=== PATIENT | female | born 1965 ===

== ENCOUNTER 2018-08-05 09:53 | Outpatient (CLI) | payer OTHER | END 2018-08-05 10:05 | disposition home or self-care (01) | LOC: MAMO-SONO 09:53 | DX: N60.11 Diffuse cystic mastopathy of right breast (principal); Z80.3 Family history of malignant neoplasm of breast ==

== ENCOUNTER 2019-08-31 13:15 | Outpatient (CLI) | payer OTHER | END 2019-08-31 13:22 | disposition home or self-care (01) | LOC: MAMO-SONO 13:15 | DX: E04.1 Nontoxic single thyroid nodule (principal); Z80.3 Family history of malignant neoplasm of breast; N60.19 Diffuse cystic mastopathy of unspecified breast ==

== ENCOUNTER 2019-09-09 09:58 | Outpatient (CLI) | payer OTHER | END 2019-09-09 10:07 | disposition home or self-care (01) | LOC: SONOGRAMA 09:58 → MAMO-SONO 10:15 | DX: R16.0 Hepatomegaly, not elsewhere classified (principal) ==

== ENCOUNTER 2021-03-11 11:07 | Outpatient (CLI) | payer OTHER | END 2021-03-11 11:08 | disposition home or self-care (01) | LOC: MAMO-SONO 11:07 | PROVIDERS: ATTEND Specialist | DX: R92.0 Mammographic microcalcification found on diagnostic imaging of breast (principal); N60.11 Diffuse cystic mastopathy of right breast; N60.12 Diffuse cystic mastopathy of left breast; Z12.31 Encounter for screening mammogram for malignant neoplasm of breast; Z87.898 Personal history of other specified conditions; N64.59 Other signs and symptoms in breast ==

== ENCOUNTER 2022-03-20 14:17 | Outpatient (CLI) | payer OTHER | END 2022-03-20 14:37 | disposition home or self-care (01) | LOC: RAD 14:17 | PROVIDERS: ATTEND Internal Medicine Rheumatology | DX: M15.8 Other polyosteoarthritis (principal) ==

== ENCOUNTER 2022-07-06 13:42 | Emergency (ER) | payer OTHER ==
[~2022-07-06] VITALS: Ht 154.9 cm; Wt 51.7 kg
== END 2022-07-06 17:05 | disposition home or self-care (01) ==
LOC: ER 13:42
DX: S59.912A Unspecified injury of left forearm, initial encounter (principal); V19.9XXA Pedal cyclist (driver) (passenger) injured in unspecified traffic accident, initial encounter; Y93.B9 Activity, other involving muscle strengthening exercises; Y92.410 Unspecified street and highway as the place of occurrence of the external cause

== ENCOUNTER 2022-08-26 12:44 | Outpatient (CLI) | payer OTHER | END 2022-08-26 13:01 | disposition home or self-care (01) | LOC: MAMO-SONO 12:44 | PROVIDERS: ATTEND Specialist | DX: N60.11 Diffuse cystic mastopathy of right breast (principal); N60.12 Diffuse cystic mastopathy of left breast; E04.2 Nontoxic multinodular goiter; R22.1 Localized swelling, mass and lump, neck ==

== ENCOUNTER 2023-08-27 13:18 | Outpatient (CLI) | payer OTHER | END 2023-08-27 13:34 | disposition home or self-care (01) | LOC: MAMO-SONO 13:18 | PROVIDERS: ATTEND Specialist | DX: N60.12 Diffuse cystic mastopathy of left breast (principal); E04.2 Nontoxic multinodular goiter ==

== ENCOUNTER 2024-09-01 12:58 | Outpatient (CLI) | payer OTHER | END 2024-09-01 13:02 | disposition home or self-care (01) | LOC: NUCLEAR 12:58 | PROVIDERS: ATTEND Internal Medicine | DX: M81.0 Age-related osteoporosis without current pathological fracture (principal) ==

== ENCOUNTER 2024-09-01 13:33 | Outpatient (CLI) | payer OTHER | END 2024-09-01 13:44 | disposition home or self-care (01) | LOC: MAMO-SONO 13:33 | PROVIDERS: ATTEND Specialist | DX: N60.12 Diffuse cystic mastopathy of left breast (principal); R92.30 Dense breasts, unspecified; E04.2 Nontoxic multinodular goiter ==